=== PATIENT | male | born 1960 | race Two or more races ===

== ENCOUNTER 2021-12-27 11:32 | Emergency (ER) | payer MEDICAID, SELFPAY ==
--- NOTE | ~2021-12-27 | XR_ITS ---
EXAMINATION: XR CHEST CLINICAL INFORMATION: Assess port. COMPARISON: 06/06/2013 chest radiograph. TECHNIQUE: Frontal view of the chest was obtained. FINDINGS: Support devices: Right-sided central venous port with tip terminating over the right atrium. Low lung volumes limit evaluation. Linear markings are seen in the left mid and lower lung k[place]. No pneumothorax. The heart and mediastinal structures are unremarkable. XR/XR chest 1V IMPRESSION: 1. Right central venous port with tip terminating over the region of the right atrium. 2. Mild linear atelectasis versus scarring in the left lower lung.
--- NOTE | ~2021-12-27 | US_ITS ---
EXAMINATION: US VENOUS ULTRASOUND WITH DOPPLER LOWER EXTREMITY, BILATERAL CLINICAL INFORMATION: Swelling COMPARISON: None TECHNIQUE: Ultrasound of the deep veins is performed from the hip to the calf with compression sonography and color and pulse Doppler assessment. Spectral analysis with color-flow imaging is performed. FINDINGS: RIGHT: There is normal venous compression and respiratory variation and augmented flow. The visualized common femoral vein, superficial femoral vein, profunda femoral vein, popliteal vein, and the trifurcation region shows no evidence of deep venous thrombosis. There is no significant popliteal fossa cyst. LEFT: There is normal venous compression and respiratory variation and augmented flow. The visualized common femoral vein, superficial femoral vein, profunda femoral vein, popliteal vein, and the trifurcation region shows no evidence of deep venous thrombosis. There is no significant popliteal fossa cyst. If the patient's symptoms persist, followup ultrasound in 5 days 7 days might be of value to exclude proximal propagation from a non-visualized calf vein. US/US venous duplex LE BI IMPRESSION: No DVT demonstrated in the bilateral lower extremity.
--- NOTE | 2021-12-27 11:35 | ECG_ITS ---
Test Reason : WEAKNESS/ VOMITTING Blood Pressure : / mmHG Vent. Rate : 068 BPM Atrial Rate : 068 BPM P-R Int : 194 ms QRS Dur : 104 ms QT Int : 400 ms P-R-T Axes : 015 -19 008 degrees QTc Int : 425 ms Normal sinus rhythm Minimal voltage criteria for LVH, may be normal variant ( R in aVL ) Cannot rule out Anterior infarct , age undetermined Abnormal ECG When compared with ECG of 06-JUN-2013 18:43, No significant change was found Referred By: Lizeth Singleton Electronically Signed By:GERARDO NICK MD
--- NOTE | 2021-12-27 11:36 | ED_ITS ---
HPI - General Adult General Chief complaint: General Medical Stated complaint: GENERAL WEAKNESS X 3 DAYS Time Seen by Provider: 12/27/21 11:34 Source: patient and EMS Mode of arrival: EMS Limitations: other (korean speaking son used for translation was offered other translation ) History of Present Illness HPI narrative: this is a 61-year-old male past medical history significant for multiple myeloma, diabetes, hypertension, high cholesterol currently on chemotherapy every Wednesday through [facility], according to patient and son patient has been vomiting for the past 3 days, and has not been able to keep anything down. They tell me that he was recently started on a new oral medication that they think this for chemotherapy however this medication at has not been settling well and patient's stomach. Patient reports that he has lost a lot of weight however is unable to quantify how much. He is also unable to quantify how many times he has vomited. He tells me he feels extremely weak, an d he is having some burning sensation in his epigastric region. Patient denies fevers, chills, chest pain, shortness of breath, urinary or bowel changes. Last chemo 12/19/2021 Onset (ago): day(s) (3) Related Data Home Medications Medication Instructions Recorded Confirmed aspirin 81 mg tablet,delayed 81 mg PO DAILY 12/27/21 12/27/21 release atorvastatin 80 mg tablet 80 mg PO DAILY 12/27/21 12/27/21 atovaquone 750 mg/5 mL oral 1,500 mg PO DAILY 12/27/21 12/27/21 suspension baclofen 5 mg tablet 10 mg PO TID 12/27/21 12/27/21 brimonidine 0.2 %-timolol 0.5 % 1 drp ophthalmic (eye) BID 12/27/21 12/27/21 eye drops (Combigan) buprenorphine 20 mcg/hour weekly 1 patch transdermal QWEEK 12/27/21 12/27/21 transdermal patch (Butrans) cholecalciferol (vitamin D3) 25 25 mcg PO DAILY 12/27/21 12/27/21 mcg (1,000 unit) tablet cyanocobalamin (vitamin B-12) 1,000 mcg PO DAILY 12/27/21 12/27/21 1,000 mcg tablet hydroxyzine HCl 25 mg tablet 25 mg PO TID PRN Itching 12/27/21 12/27/21 insulin aspart U-100 100 unit/mL 15 unit subcut TID 12/27/21 12/27/21 subcutaneous solution (Novolog U-100 Insulin aspart) latanoprost 0.005 % eye drops 1 drp ophthalmic (eye) BEDTIME 12/27/21 12/27/21 loratadine 10 mg tablet 10 mg PO DAILY 12/27/21 12/27/21 methylphenidate HCl 5 mg tablet 5 mg PO BID 12/27/21 12/27/21 netarsudil 0.02 % eye drops 1 drp ophthalmic (eye) BEDTIME 12/27/21 12/27/21 (Rhopressa) ondansetron 8 mg disintegrating 8 mg PO Q8H PRN Nausea 12/27/21 12/27/21 tablet polyethylene glycol 3350 17 gram 17 g PO DAILY PRN Constipation 12/27/21 12/27/21 oral powder packet (Miralax) valacyclovir 500 mg tablet 500 mg PO BID 12/27/21 12/27/21 Previous Rx's Medication Instructions Recorded ondansetron 4 mg disintegrating 4 mg PO ONCE PRN nausea and 12/27/21 tablet vomiting #10 tabs Allergies Allergy/AdvReac Type Severity Reaction Status Date / Time No Known Allergies Allergy Unverified 03/21/20 18:08 [No Known Allergies*] Review of Systems Review of Systems: Constitutional : No Weight loss, No Fever, No Chills, No Fatigue, No Malaise ENT/Mouth : No sore throat, No Rhinorrhea Eyes: No Eye Pain, No Swelling, No Redness Cardiovascular : No Chest Pain, No SOB, No Dyspnea on Exertion, No Orthopnea, No Edema, No Palpitations Respiratory : No Cough, No Sputum, No Wheezing Gastrointestinal : No Nausea, No Vomiting, No Diarrhea, No Constipation, No abdominal Pain, No Hematochezia, No Melena Genitourinary : No Dysuria, No Urinary Frequency, No Hematuria, Musculoskeletal : No joint pain, No Myalgias, No Joint Swelling Skin : No Skin Lesions, No rash Neuro : No Weakness, No Numbness, No Dizziness, No Headache Psych : No Anxiety/Panic, No Depression All other systems reviewed and are negative Yes all other systems are reviewed and are negative PMFSH Past Medical History Attestation statement: The following information was validated with the patient. Source: old records reviewed and nursing notes reviewed Social History Social History Advance Directives: No Advance Directives Information Provided: No Physical Exam ED Vital Signs: Vital Signs - 24 hr 12/27/21 11:52 12/27/21 12:27 12/27/21 13:54 Temperature 99.5 F 98.1 F Pulse Rate 68 64 64 Respiratory Rate 16 14 16 Blood Pressure 129/60 133/67 155/79 H Pulse Oximetry 99 97 99 Oxygen Delivery Method Room Air Room Air Room Air 12/27/21 16:00 Temperature 98.1 F Pulse Rate 64 Respiratory Rate 16 Blood Pressure 164/71 H Pulse Oximetry 99 Oxygen Delivery Method Room Air BMI result Body Mass Index 30.9 Vital signs stable Appearance: Alert.? Oriented X3.? No acute distress.? Head: Normocephalic, atraumatic, no step-offs or deformities Eyes: Pupils equal, round and reactive to light.? ENT: Pharynx normal.? Neck: Normal inspection.? Neck supple.? CVS: Normal heart rate and rhythm.? Pulses normal.? Respiratory: No respiratory distress.? Breath sounds normal.? Abdomen: Soft and nontender.? Skin: Skin warm and dry.? Normal skin color.? Normal skin turgor.? Extremities: 1+ lower extremity edema b/l R>L.? No calf ttp. 5/5 strength to bilateral upper and lower extremities Back: No midline tenderness, no C-spine tenderness, full range of motion, no CVA tenderness bilaterally Neuro: Oriented X 3.? No motor deficit.? No sensory deficit. CN 2-12 intact Course Reevaluation(s) Reevaluation #1: Patient is noted to have a pancytopenia likely secondary to chemotherapy agents. patient is noted to have low platelets however no evidence of bleeding at this time. Patient's BUN slightly elevated likely secondary to dehydration. UA clean for infection. COVID negative. I had Dr. Eckert speak to this patient as he speaks Khmer, patient is also reporting lower extremity edema, on exam right leg slightly more swollen the left, 2+ posterio tib and dorsalis pedis pulses equal bilateral. Will order a bilateral venous duplex to rule out DVT. This case was discussed with Dr.Elmogy. Patient's nausea and vomiting improved. He is getting hydrated and he feels slightly better Time: 18:24 Reevaluation #2: Venous duplex lower extremities with no DVT. Right central venous port with t ip terminating over the region of the right atrium, no other acute findings. Patient tollerating PO. Feeling better no N/V Patient without nausea and vomiting, was given a GI cocktail with success. Likely nausea and vomiting secondary to chemotherapy. At this time patient will be discharged home with prompt PCP and Oncology follow-up. Time: 21:01 Medical Decision Making [facility] Narrative Medical decision making narrative: [id number] yo m hx Of multiple myeloma currently on chemotherapy an oral medication presenting to the emergency department with weakness, nausea, vomiting, epigastric burning, poor PO intake x3 days. Recently started on a new oral regimen. Patient unsure of what medication he is on. audio visual secretary is currently trying to request [facility] oncology records in last hospitalization records. Physical examination benign. Plan at this time is to obtain an EKG, basic labs, urine, will rule out electrolyte abnormalities, dehydration. Will also start fluids and give Zofran Medical Records Medical records reviewed: Yes I reviewed the patient's medical records. Lab Data Lab results reviewed: Yes I reviewed the patient's lab results. Result diagrams: 12/27/21 13:01 12/27/21 13:01 Labs: Lab Results 12/27/21 12/27/21 12/27/21 Range/Units 12:25 13:01 13:01 WBC 2.4 L (4.8-10.8) X10*3/uL RBC 2.97 L (4.60-5.80) X10*6/uL Hgb 8.9 L (14.0-18.0) g/dl Hct 25.7 L (42.0-52.0) % MCV 86.5 (80.0-98.0) fL MCH 30.0 (27.0-33.0) pg MCHC 34.6 (31.0-36.0) g/dl RDW 13.4 (11.0-16.0) % Plt Count 23 L (160-400) X10*3/uL MPV 9.6 (9.4-12.4) fL Immature Gran % (Auto) 0.0 (0.0-0.4) % Neut % (Auto) 71.9 (45-73) % Lymph % (Auto) 13.0 L (20-40) % [place] % (Auto) 15.1 H (2-11) % Eos % (Auto) 0.0 (0-4) % Baso % (Auto) 0.0 (0-2) % Lymph # (Auto) 0.3 L (1.2-4.9) X10*3/uL [place] # (Auto) 0.4 (0.1-1.2) X10*3/uL Eos # (Auto) 0.0 (0.0-0.4) X10*3/uL Baso # (Auto) 0.0 (0.0-0.2) X10*3/uL Abs Immat Gran (auto) 0.00 (0.00-0.03) X10*3/uL Absolute Neuts (auto) 1.7 L (2.0-8.3) x10*3/uL Absolute Nucleated RBC 0.000 (0.0-0.012) X10*3/uL Nucleated RBC % (auto) 0.0 (0.0-0.2) /100WBC Smear Tech's Comments VERIFIED Sodium 134 L (135-145) mmol/L Potassium 3.8 (3.3-5.1) mmol/L Chloride 105 (96-108) mmol/L Carbon Dioxide 21 L (22-29) mmol/L Anion Gap 12 (12-20) BUN 21 H (9-16) mg/dL Creatinine 1.39 (0.5-1.4) mg/dL Estim Creat Clear Calc 78.4 Estimated GFR 52 Random Glucose 170 H (60-115) mg/dL Calcium 8.8 (8.4-10.2) mg/dL Magnesium 1.7 (1.6-2.6) mg/dL Total Bilirubin 1.1 H (0.0-1.0) mg/dL AST 12 (5-37) U/L ALT 7 (0-40) U/L Alkaline Phosphatase 52 (39-117) U/L B-Natriuretic Peptide (<100) pg/mL Total Protein 6.6 (6.5-8.0) g/dL Albumin 3.7 (3.5-5.0) g/dL Urine Color Urine Appearance Urine pH (5.0-8.0) Ur Specific [place] (1.005-1.025) Urine Protein (NEG-TRACE) MG/DL Urine Glucose (UA) (NEG) MG/DL Urine Ketones (NEG) MG/DL Urine Blood (NEG) Urine Nitrite (NEG) Ur Leukocyte Esterase (NEG) Urine RBC (0) /HPF Urine WBC (0-4) /HPF Ur Squamous Epith Cells /LPF Urine Bacteria /LPF Hyaline Casts /LPF Urine Mucus /LPF COVID-19 (STEPHANIE) Negative (Negative) COVID-19 Clin Com See Note 12/27/21 12/27/21 Range/Units 15:09 20:46 WBC (4.8-10.8) X10*3/uL RBC (4.60-5.80) X10*6/uL Hgb (14.0-18.0) g/dl Hct (42.0-52.0) % MCV (80.0-98.0) fL MCH (27.0-33.0) pg MCHC (31.0-36.0) g/dl RDW (11.0-16.0) % Plt Count (160-400) X10*3/uL MPV (9.4-12.4) fL Immature Gran % (Auto) (0.0-0.4) % Neut % (Auto) (45-73) % Lymph % (Auto) (20-40) % [place] % (Auto) (2-11) % Eos % (Auto) (0-4) % Baso % (Auto) (0-2) % Lymph # (Auto) (1.2-4.9) X10*3/uL [place] # (Auto) (0.1-1.2) X10*3/uL Eos # (Auto) (0.0-0.4) X10*3/uL Baso # (Auto) (0.0-0.2) X10*3/uL Abs Immat Gran (auto) (0.00-0.03) X10*3/uL Absolute Neuts (auto) (2.0-8.3) x10*3/uL Absolute Nucleated RBC (0.0-0.012) X10*3/uL Nucleated RBC % (auto) (0.0-0.2) /100WBC Smear Tech's Comments Sodium (135-145) mmol/L Potassium (3.3-5.1) mmol/L Chloride (96-108) mmol/L Carbon Dioxide (22-29) mmol/L Anion Gap (12-20) BUN (9-16) mg/dL Creatinine (0.5-1.4) mg/dL Estim Creat Clear Calc Estimated GFR Random Glucose (60-115) mg/dL Calcium (8.4-10.2) mg/dL Magnesium (1.6-2.6) mg/dL Total Bilirubin (0.0-1.0) mg/dL AST (5-37) U/L ALT (0-40) U/L Alkaline Phosphatase (39-117) U/L B-Natriuretic Peptide 255 H (<100) pg/mL Total Protein (6.5-8.0) g/dL Albumin (3.5-5.0) g/dL Urine Color YELLOW Urine Appearance CLEAR Urine pH 6.0 (5.0-8.0) Ur Specific [place] 1.020 (1.005-1.025) Urine Protein 2+ H (NEG-TRACE) MG/DL Urine Glucose (UA) NEG (NEG) MG/DL Urine Ketones NEG (NEG) MG/DL Urine Blood 1+ H (NEG) Urine Nitrite NEG (NEG) Ur Leukocyte Esterase NEG (NEG) Urine RBC 1-4 (0) /HPF Urine WBC 0-2 (0-4) /HPF Ur Squamous Epith Cells TRACE /LPF Urine Bacteria NONE /LPF Hyaline Casts 1-4 /LPF Urine Mucus TRACE /LPF COVID-19 (STEPHANIE) (Negative) COVID-19 Clin Com Critical Care Time Critical Care Time Critical Care Time: No Discharge Plan Discharge Clinical Impression: Weakness, Nausea & vomiting Patient Disposition: Home, Self-Care Instructions: Acute Nausea and Vomiting (ED), Weakness (ED) Additional Instructions: Take your medications as prescribed. If you were prescribed antibiotics today, it is important that you take your medication to their entirety, do not skip any doses, do not finish them early. Follow-up with your primary care provider this week. Return to the emergency department with new or worsening symptoms. Such as fevers, chills, chest pain, shortness of breath, nausea, vomiting, dizziness, headache, vision changes, lethargy In case of emergency call 911 US/US venous duplex LE BI IMPRESSION: No DVT demonstrated in the bilateral lower extremity. Prescriptions: New ondansetron 4 mg tablet,disintegrating 4 mg PO ONCE PRN (Reason: nausea and vomiting) Qty: 10 0RF No Action latanoprost 0.005 % Drops 1 drp OPHTHALMIC (EYE) BEDTIME atorvastatin 80 mg Tablet 80 mg PO DAILY polyethylene glycol 3350 [Miralax] 17 gram Powder In Packet 17 g PO DAILY PRN (Reason: Constipation) methylphenidate HCl 5 mg Tablet 5 mg PO BID cyanocobalamin (vitamin B-12) 1,000 mcg Tablet 1,000 mcg PO DAILY valacyclovir 500 mg Tablet 500 mg PO BID aspirin 81 mg Tablet,Delayed Release (Dr/Ec) 81 mg PO DAILY ondansetron 8 mg Tablet,Disintegrating 8 mg PO Q8H PRN (Reason: Nausea) insulin aspart U-100 [Novolog U-100 Insulin aspart] 100 unit/mL Solution 15 unit SUBCUT TID loratadine 10 mg Tablet 10 mg PO DAILY atovaquone 750 mg/5 mL Suspension 1,500 mg PO DAILY Rx Instructions: must administer with food, preferably a high-fat meal cholecalciferol (vitamin D3) 25 mcg (1,000 unit) Tablet 25 mcg PO DAILY brimonidine-timolol [Combigan] 0.2-0.5 % Drops 1 drp OPHTHALMIC (EYE) BID buprenorphine [Butrans] 20 mcg/hour Patch Weekly 1 patch TRANSDERMAL QWEEK Rhopressa 0.02 % Drops 1 drp OPHTHALMIC (EYE) BEDTIME baclofen 5 mg Tablet 10 mg PO TID hydroxyzine HCl 25 mg Tablet 25 mg PO TID PRN (Reason: Itching) Referrals: Name,MD Lucas [Primary Care Provider] - 2 days
[2021-12-27 11:44] VITALS: BP 127/73; PULSE 72; O2SAT 94; BMI 30.9
[2021-12-27 11:52] VITALS: BP 129/60; PULSE 68; RESP 16; TEMP 37.5; O2SAT 99
[2021-12-27 12:27] VITALS: BP 133/67; PULSE 64; RESP 14; O2SAT 97
[2021-12-27 12:56] LABS: COVID-19 Test Negative (Negative); IDNOW Serial# 16C4AD1C
[2021-12-27] MEDS: 0.9 % Sodium Chloride 1,000 ML 999 ML IV ×3 (13:03→19:39)
[2021-12-27 13:19] LABS: Monocytes Percent Auto 15.1 % (2-11); PLT CLUMP 1; SCAN SMEAR FLAG 1
[2021-12-27 13:21] LABS: Hematocrit 25.7 % (42.0-52.0); Hemoglobin 8.9 g/dl (14.0-18.0); Lymphocytes Absolute Auto 0.3 X10*3/uL (1.2-4.9); Mean Corpuscular HGB Conc 34.6 g/dl (31.0-36.0); Mean Corpuscular Volume 86.5 fL (80.0-98.0); Mean Platelet Volume 9.6 fL (9.4-12.4); Monocytes Absolute Auto 0.4 X10*3/uL (0.1-1.2); Neutrophils Absolute Auto 1.7 x10*3/uL (2.0-8.3); Neutrophils Percent Auto 71.9 % (45-73); Red Blood Count 2.97 X10*6/uL (4.60-5.80); Red Cell Distribution Width 13.4 % (11.0-16.0)
[2021-12-27 13:25] LABS: White Blood Count 2.4 X10*3/uL (4.8-10.8)
--- NOTE | 2021-12-27 13:34 | PHA.MEDREC ---
Pharmacy Consult ? Medication Reconciliation Pharmacy has completed the medication reconciliation. Pt's son Damon at bedside helping translate. Pt unsure of exactly which medications he takes, but stated he takes an antiviral and named a couple vitamins, also noted a liquid that he takes. Damon told me he uses [facility] [address] in [place], called and spoke to Monica who went over most recent medication warehouse order picker. Pt stated the only thing he took today was his nausea medication.
[2021-12-27 13:37] LABS: Platelet Count 23 X10*3/uL (160-400)
[2021-12-27 13:38] LABS: MANUAL DIFF FLAG SCAN; SLIDE REVIEW VERIFIED
[2021-12-27 13:54] VITALS: BP 155/79; PULSE 64; RESP 16; TEMP 36.7; O2SAT 99
[2021-12-27 14:15] LABS: Alanine Aminotransferase 7 U/L (0-40); Albumin Level 3.7 g/dL (3.5-5.0); Alkaline Phosphatase 52 U/L (39-117); Anion Gap 12 (12-20); Aspartate Amino Transferase 12 U/L (5-37); Bilirubin Total 1.1 mg/dL (0.0-1.0); Blood Urea Nitrogen 21 mg/dL (9-16); Calcium 8.8 mg/dL (8.4-10.2); Carbon Dioxide 21 mmol/L (22-29); Chloride 105 mmol/L (96-108); Creatinine Clr Calc Pharmacy 78.4; Estimated Glomerular Filt Rate 52; Glucose Random 170 mg/dL (60-115); Magnesium 1.7 mg/dL (1.6-2.6); Potassium 3.8 mmol/L (3.3-5.1); Sodium 134 mmol/L (135-145); Total Protein 6.6 g/dL (6.5-8.0)
[2021-12-27 15:25] LABS: Appearance Urine CLEAR; Color Urine YELLOW; Glucose Urine UA NEG (NEG); Leukocyte Esterase Urine NEG (NEG); Nitrite Urine NEG (NEG); UACC Culture Trigger NO; Urine Blood 1+ (NEG); Urine Ketones NEG (NEG); Urine Protein 2+ MG/DL (NEG-TRACE)
[2021-12-27 16:00] VITALS: BP 164/71; PULSE 64; RESP 16; TEMP 36.7; O2SAT 99
[2021-12-27 16:13] LABS: Mucus Urine TRACE /LPF; Squamous Epithelial Cell Urine TRACE /LPF; WBC Urine 0-2 /HPF (0-4)
[2021-12-27] MEDS: PHENobarb/Hyoscy/Atropine/Scop 10 ML ELIXIR PO (20:40)
[2021-12-27] MEDS: Magnesium Hydrox/Alum Hydrox 30 ML ORAL.SUSP PO (20:40)
[2021-12-27] MEDS: Ondansetron ODT 4 MG TAB.RAPDIS TRANSLINGU (20:40)
[2021-12-27 21:22] LABS: B Type Natriuretic Peptide 255 pg/mL (<100)
== END 2021-12-27 22:22 | disposition home or self-care (01) ==
PROVIDERS: Physician Assistant; Emergency Provider Emergency Medicine Emergency Medical Services; PCP Internal Medicine Geriatric Medicine
DX: R53.1 Weakness (principal); R11.2 Nausea with vomiting, unspecified; R10.13 Epigastric pain; R60.0 Localized edema; R06.02 Shortness of breath; Z20.822 Contact with and (suspected) exposure to COVID-19; Z79.82 Long term (current) use of aspirin
CPT/HCPCS: 36415; 71045; 80053; 81001; 83735; 83880; 85025; 87635; 93005; 93970; 96360; 96361; 99284; 99285

== ENCOUNTER 2022-01-11 01:39 | Observation (INO) | payer MEDICAID, SELFPAY ==
[2022-01-11] VITALS (12 sets, daily range): BP systolic 82–111; BP diastolic 46–68; PULSE 61–77; RESP 12–20; TEMP 36.4–36.8; O2SAT 94–100; BMI 34.9
--- NOTE | ~2022-01-11 | CT_ITS ---
EXAMINATION: CT ABDOMEN AND PELVIS WITHOUT CONTRAST CLINICAL INFORMATION: Diarrhea. Pain. COMPARISON: 09/28/2012 TECHNIQUE: Multidetector volumetric imaging was performed from the superior aspect of the liver through the pubic symphysis. Sagittal and coronal reformatted images were obtained on the technologist's workstation. This CT examination was performed using dose optimization techniques as appropriate, variously including the following: *Automated exposure control *Adjustment of mA and/or kV according to patient size (this includes techniques or standardized protocols for targeted exams where dose is matched to indication/reason for exam; i.e. extremities or head) *Use of iterative reconstruction technique DLP: 1074 mGy-cm FINDINGS: LUNG BASES: Bibasilar atelectasis. Pleural plaques are noted. Coronary artery calcifications. LIVER, GALLBLADDER, AND BILIARY TREE: The liver is normal in size, shape, and attenuation. No focal hepatic lesion or biliary ductal dilatation is present. The gallbladder is unremarkable with no evidence of radiopaque gallstones, gallbladder wall thickening, or obvious pericholecystic inflammatory changes. PANCREAS: Fatty atrophy of the pancreatic parenchyma with no focal abnormality. SPLEEN: Unremarkable. ADRENAL GLANDS: Unremarkable. KIDNEYS AND URETERS: The kidneys are normal in size, shape, and attenuation. No hydronephrosis, hydroureter, or calculi seen. No perinephric stranding. Bilateral multiple simple cysts. No follow-up imaging recommended. BLADDER: Unremarkable. GASTROINTESTINAL TRACT: Distended stomach without wall thickening. Normal caliber small bowel without obstruction. Fluid-filled appearance of the small bowel. Fluid-filled appearance throughout the colon. No colonic wall thickening. ABDOMINAL WALL: No significant hernia is appreciated. LYMPH NODES: Normal. VASCULAR: Normal caliber aorta with mild atherosclerotic calcifications. PELVIC VISCERA: The prostate and seminal vesicles are unremarkable. OSSEOUS STRUCTURES: No acute or suspicious abnormality. The bones are significantly osteopenic. Fusion hardware at L3-L5. Kyphoplasty of T12. Multilevel vertebral body height loss. Subacute to chronic sternal fracture. CT/CT abdomen pelvis wo con IMPRESSION: Fluid-filled distention of the small and large bowel without abnormal dilatation. This could represent enterocolitis. No significant inflammatory changes. Fleischner guidelines were followed.
--- NOTE | ~2022-01-11 | XR_ITS ---
EXAMINATION: XR CHEST CLINICAL INFORMATION: Weakness COMPARISON: 12/27/2021 TECHNIQUE: Frontal view of the chest was obtained. FINDINGS: CT compatible right chest wall port terminates near the cavoatrial junction. Cardiac leads overlie the chest. The lungs are well expanded. Linear left midlung atelectasis/scarring. No pleural effusion or pneumothorax. No dense consolidation. No effusion. The cardiomediastinal silhouette is unchanged. XR/XR chest 1V IMPRESSION: Linear left midlung atelectasis. No consolidation.
--- NOTE | 2022-01-11 02:02 | ECG_ITS ---
Test Reason : WEAKNESS Blood Pressure : / mmHG Vent. Rate : 070 BPM Atrial Rate : 070 BPM P-R Int : 208 ms QRS Dur : 108 ms QT Int : 394 ms P-R-T Axes : 026 005 035 degrees QTc Int : 425 ms Normal sinus rhythm Normal ECG When compared with ECG of 27-DEC-2021 11:58, No significant change was found Referred By: Mery Mason Electronically Signed By:Gino Mello
--- NOTE | 2022-01-11 02:07 | ED_ITS ---
HPI - Nausea/Vomiting/Diarrhea General Chief complaint: Weakness Stated complaint: DIZZINESS ,LOW BP 70/40 PER EMS Time Seen by Provider: 01/11/22 01:52 Source: patient, EMS and old records reviewed Mode of arrival: EMS Limitations: no limitations History of Present Illness HPI Narrative: 61 yo male from home hx of multiple myeloma, DM, HTN, HLD - on chemo every wednesday through [facility] (has port R chest wall) states chemo was last wednesday he usually has n/v post chemo but for past two days his stomach has been gurgling and he has had significant diarrhea and poor PO intake. BP at home in 70s. Seen at end of December here for similar complaint. Patient also notes he has diffuse body pain as well. MD elicited complaint: nausea, vomiting, diarrhea and abdominal pain Pertinent past history: other (recent chemo for multiple myeloma) Onset (ago): day(s) (2) Description of vomiting: watery Associated nausea: Yes Associated abdominal pain: Yes Location of pain: diffuse Radiation: diffuse Pain consistency: intermittent Severity: moderate Quality: aching and dull Exacerbating factors: eating Relieving factors: none Context: recent surgery/procedure Associated symptoms: loss of appetite, malaise, nausea/vomiting, weakness and fatigue Related Data Home Medications Medication Instructions Recorded Confirmed aspirin 81 mg tablet,delayed 81 mg PO DAILY 12/27/21 12/27/21 release atorvastatin 80 mg tablet 80 mg PO DAILY 12/27/21 12/27/21 atovaquone 750 mg/5 mL oral 1,500 mg PO DAILY 12/27/21 12/27/21 suspension baclofen 5 mg tablet 10 mg PO TID 12/27/21 12/27/21 brimonidine 0.2 %-timolol 0.5 % 1 drp ophthalmic (eye) BID 12/27/21 12/27/21 eye drops (Combigan) buprenorphine 20 mcg/hour weekly 1 patch transdermal QWEEK 12/27/21 12/27/21 transdermal patch (Butrans) cholecalciferol (vitamin D3) 25 25 mcg PO DAILY 12/27/21 12/27/21 mcg (1,000 unit) tablet cyanocobalamin (vitamin B-12) 1,000 mcg PO DAILY 12/27/21 12/27/21 1,000 mcg tablet hydroxyzine HCl 25 mg tablet 25 mg PO TID PRN Itching 12/27/21 12/27/21 insulin aspart U-100 100 unit/mL 15 unit subcut TID 12/27/21 12/27/21 subcutaneous solution (Novolog U-100 Insulin aspart) latanoprost 0.005 % eye drops 1 drp ophthalmic (eye) BEDTIME 12/27/21 12/27/21 loratadine 10 mg tablet 10 mg PO DAILY 12/27/21 12/27/21 methylphenidate HCl 5 mg tablet 5 mg PO BID 12/27/21 12/27/21 netarsudil 0.02 % eye drops 1 drp ophthalmic (eye) BEDTIME 12/27/21 12/27/21 (Rhopressa) ondansetron 8 mg disintegrating 8 mg PO Q8H PRN Nausea 12/27/21 12/27/21 tablet polyethylene glycol 3350 17 gram 17 g PO DAILY PRN Constipation 12/27/21 12/27/21 oral powder packet (Miralax) valacyclovir 500 mg tablet 500 mg PO BID 12/27/21 12/27/21 Previous Rx's Medication Instructions Recorded ondansetron 4 mg disintegrating 4 mg PO ONCE PRN nausea and 12/27/21 tablet vomiting #10 tabs Allergies Allergy/AdvReac Type Severity Reaction Status Date / Time No Known Allergies Allergy Unverified 03/21/20 18:08 [No Known Allergies*] Review of Systems Review of Systems: Constitutional : No Weight loss, No Fever, No Chills ENT/Mouth : No sore throat, No Rhinorrhea Eyes: No Swelling, No Redness Cardiovascular : No Chest Pain, No SOB, NoEdema Respiratory : No Cough, No Sputum, No Wheezing Gastrointestinal : Positive Nausea, Positive Vomiting, positive Diarrhea, positive abdominal Pain, No Hematochezia, No Melena Genitourinary : No Dysuria, No Urinary Frequency, No Hematuria, No Urgency Musculoskeletal : No joint pain, No Myalgias, No Joint Swelling Skin : No Skin Lesions, No rash Neuro : pos Weakness, No Numbness, No Dizziness, No Headache Psych : No Anxiety/Panic, No Depression Heme/Lymph: No Bruising, No Lymphadenopathy Endocrine : No Polyuria, No Polydipsia All other systems reviewed and are negative. Gastrointestinal: Gastrointestinal: Reports nausea PMFSH Past Medical History Attestation statement: The following information was validated with the patient. Medical History Diabetes HTN (hypertension) Hyperlipidemia Multiple myeloma Social History Social History (Updated 01/11/22 @ 02:11 by Mery Mason DO) Patient Tobacco Use Status: Tobacco use Unknown Physical Exam Vital Signs: Vital Signs: Last Vital Signs Temp 97.6 F 01/11/22 01:53 Pulse 71 01/11/22 01:53 Resp 16 01/11/22 01:53 BP 82/50 L 01/11/22 01:53 Pulse Ox 97 01/11/22 01:53 O2 Del Method 01/11/22 01:53 BMI result Body Mass Index 34.9 Appearance: Alert. Oriented X3. Mild acute distress. Eyes: Pupils equal, round and reactive to light. ENT: Pharynx mild dry MM Neck: Normal inspection. Neck supple. CVS: Normal heart rate and rhythm. Pulses normal. Respiratory: No respiratory distress. Breath sounds normal. Abdomen: Soft and mild diffuse ttp no rebound or guarding Skin: Skin warm and dry. pale skin color. Normal skin turgor. Extremities: No lower extremity edema. Neuro: Oriented X 3. No motor deficit. No sensory deficit. Course Course Course Narrative: patient signed out to Dr. Leiva MDM - Nausea/Vomiting/Diarrhea MDM Narrative Medical decision making narrative: 61 yo male from home hx of multiple myeloma, DM, HTN, HLD - on chemo every wednesday through [facility] at this time patient having n/v/d and body pains post chemo on Wednesday. Will obtain basic labs, cultures, CXR, UA and hydrate - he is obese so IBW is 78 kg which = 30cc/kg bolus 2340ml. IV zofran ordered. CT scan for obstruction ordered as well has bilateral hematomas on abdominal wall ? injection sites will obtain records from [facility]. ECG Data Attestation: I personally reviewed and interpreted this ECG as follows: ECG interpretation date: 01/11/22 ECG interpretation time: 02:31 Interpretation: Rate: 70 Rhythm: NSR with 1st degree AVB [place]: left Normal P waves. Normal BRIAN. Normal QRS complex. ST T wave : normal no ROSHNI qTC: normal prior studies: no acute ischemia The study has been interpreted contemporaneously by me. Discharge Plan Discharge Clinical Impression: Acute dehydration Vomiting Qualifiers: Vomiting type: unspecified Nausea presence: with nausea Qualified Code(s): R11.2 - Nausea with vomiting, unspecified Diarrhea Qualifiers: Diarrhea type: unspecified type Qualified Code(s): R19.7 - Diarrhea, unspecified Patient Disposition: Still a Patient Prescriptions: No Action latanoprost 0.005 % Drops 1 drp OPHTHALMIC (EYE) BEDTIME atorvastatin 80 mg Tablet 80 mg PO DAILY polyethylene glycol 3350 [Miralax] 17 gram Powder In Packet 17 g PO DAILY PRN (Reason: Constipation) methylphenidate HCl 5 mg Tablet 5 mg PO BID cyanocobalamin (vitamin B-12) 1,000 mcg Tablet 1,000 mcg PO DAILY valacyclovir 500 mg Tablet 500 mg PO BID aspirin 81 mg Tablet,Delayed Release (Dr/Ec) 81 mg PO DAILY ondansetron 8 mg Tablet,Disintegrating 8 mg PO Q8H PRN (Reason: Nausea) insulin aspart U-100 [Novolog U-100 Insulin aspart] 100 unit/mL Solution 15 unit SUBCUT TID loratadine 10 mg Tablet 10 mg PO DAILY atovaquone 750 mg/5 mL Suspension 1,500 mg PO DAILY Rx Instructions: must administer with food, preferably a high-fat meal cholecalciferol (vitamin D3) 25 mcg (1,000 unit) Tablet 25 mcg PO DAILY brimonidine-timolol [Combigan] 0.2-0.5 % Drops 1 drp OPHTHALMIC (EYE) BID buprenorphine [Butrans] 20 mcg/hour Patch Weekly 1 patch TRANSDERMAL QWEEK Rhopressa 0.02 % Drops 1 drp OPHTHALMIC (EYE) BEDTIME baclofen 5 mg Tablet 10 mg PO TID hydroxyzine HCl 25 mg Tablet 25 mg PO TID PRN (Reason: Itching) ondansetron 4 mg tablet,disintegrating 4 mg PO ONCE PRN (Reason: nausea and vomiting) Qty: 10 0RF
[2022-01-11 02:53] LABS: MANUAL DIFF FLAG NO
[2022-01-11 02:55] LABS: Hematocrit 25.5 % (42.0-52.0); Hemoglobin 8.6 g/dl (14.0-18.0); Imm Gran Abs Auto 0.02 X10*3/uL (0.00-0.03); Imm Gran Pct Auto 0.7 % (0.0-0.4); Lymphocytes Absolute Auto 0.4 X10*3/uL (1.2-4.9); Lymphocytes Percent Auto 13.1 % (20-40); Mean Corpuscular HGB Conc 33.7 g/dl (31.0-36.0); Mean Corpuscular Hemoglobin 30.5 pg (27.0-33.0); Mean Corpuscular Volume 90.4 fL (80.0-98.0); Mean Platelet Volume 11.8 fL (9.4-12.4); Monocytes Absolute Auto 0.3 X10*3/uL (0.1-1.2); Monocytes Percent Auto 11.7 % (2-11); NRBC Pct Auto 1.8 /100WBC (0.0-0.2); Neutrophils Absolute Auto 2.1 x10*3/uL (2.0-8.3); Neutrophils Percent Auto 74.5 % (45-73); Red Blood Count 2.82 X10*6/uL (4.60-5.80); Red Cell Distribution Width 14.9 % (11.0-16.0); White Blood Count 2.8 X10*3/uL (4.8-10.8)
[2022-01-11 02:57] LABS: Platelet Count 38 X10*3/uL (160-400)
[2022-01-11 03:01] LABS: INTERNATIONAL NORM RATIO 1.1 (0.9-1.1); Prothrombin Time 12.2 SEC (10.0-13.1)
[2022-01-11 03:12] LABS: Alanine Aminotransferase 7 U/L (0-40); Alkaline Phosphatase 46 U/L (39-117); Anion Gap 13 (12-20); Aspartate Amino Transferase 17 U/L (5-37); Bilirubin Direct 0.3 mg/dL (0.0-0.5); Bilirubin Total 0.4 mg/dL (0.0-1.0); Blood Urea Nitrogen 40 mg/dL (9-16); Calcium 8.7 mg/dL (8.4-10.2); Carbon Dioxide 17 mmol/L (22-29); Chloride 103 mmol/L (96-108); Creatinine Clr Calc Pharmacy 53.5; Estimated Glomerular Filt Rate 36; Glucose Random 175 mg/dL (60-115); Lipase 8 U/L (8-78); Magnesium 1.8 mg/dL (1.6-2.6); Potassium 3.4 mmol/L (3.3-5.1); Sodium 130 mmol/L (135-145); Total Protein 7.2 g/dL (6.5-8.0)
[2022-01-11 03:18] LABS: Lactic Acid 2.3 mmol/L (0.5-2.0)
[2022-01-11] MEDS: 0.9 % Sodium Chloride 500 ML IV (03:19)
[2022-01-11] MEDS: 0.9 % Sodium Chloride 1,000 ML 999 ML IVCONT ×2 (03:19→05:10)
[2022-01-11] MEDS: ondansetron HCL 4 MG/2 ML VIAL IVPUSH (03:19)
--- NOTE | 2022-01-11 03:20 | PC.NURSE ---
pt vomited 100 cc of red tinged emesis/digested food. notified. VSS. it was determined that pt had eaten a burger PATIENT TRANSPORT OFFICER
[2022-01-11 03:29] LABS: Procalcitonin 0.05 ng/mL
[2022-01-11 03:41] LABS: Influenza A PCR NEGATIVE (Negative); Influenza B PCR NEGATIVE (Negative); Resp Syncy Virus RNA Qual PCR NEGATIVE (Negative); SARS COV2 PCR INHOUSE NEGATIVE (Negative)
[2022-01-11 03:54] LABS: CDiff Gene PCR NEGATIVE (Negative)
--- NOTE | 2022-01-11 04:00 | PC.NURSE ---
pt ambulated to BR stating he had to move his bowels. pt was asssited to w/c and brought to . pt able to transfer self back to w/c from toilet independently using cane.
[2022-01-11 04:49] LABS: Reflex Lactate? Lactic Acid Added
[2022-01-11 04:49] LABS: Appearance Urine HAZY; Color Urine DK YELLOW; Glucose Urine UA NEG (NEG); Leukocyte Esterase Urine NEG (NEG); Nitrite Urine NEG (NEG); PH 5.5 (5.0-8.0); Specific Gravity - Urine >= 1.030 (1.005-1.025); UACC Culture Trigger NO; Urine Blood 1+ (NEG); Urine Ketones NEG (NEG); Urine Protein 2+ MG/DL (NEG-TRACE)
[2022-01-11 05:01] LABS: Amorphous Sediment Urine 1+ /LPF; Bacteria Urine TRACE /LPF; Calcium Oxalate Crystals Urine TRACE /LPF; Hyaline Casts Urine 30-49 /LPF; Mucus Urine 2+ /LPF; RBC Urine 0-2 /HPF (0); Squamous Epithelial Cell Urine 1+ /LPF
[2022-01-11 05:20] LABS: ~Lactic Acid-LAB USE ONLY 1.9 mmol/L (0.5-2.0)
[2022-01-11 05:57] LABS: Alanine Aminotransferase 7 U/L (0-40); Albumin Level 3.6 g/dL (3.5-5.0); Alkaline Phosphatase 42 U/L (39-117); Anion Gap 11 (12-20); Aspartate Amino Transferase 15 U/L (5-37); Bilirubin Total 0.4 mg/dL (0.0-1.0); Blood Urea Nitrogen 40 mg/dL (9-16); Calcium 8.4 mg/dL (8.4-10.2); Carbon Dioxide 17 mmol/L (22-29); Chloride 107 mmol/L (96-108); Creatinine Clr Calc Pharmacy 59.8; Estimated Glomerular Filt Rate 41; Glucose Random 173 mg/dL (60-115); Potassium 3.1 mmol/L (3.3-5.1); Sodium 132 mmol/L (135-145); Total Protein 6.4 g/dL (6.5-8.0)
[2022-01-11 06:23] LABS: Magnesium 1.7 mg/dL (1.6-2.6)
--- NOTE | 2022-01-11 06:30 | PC.NURSE ---
unable to verify whether pt is still taking methadone, pt unsure. [facility] pharmacy is closed until 8 am. medications reconciled with pt and external hx. pt resting in bed, no distress.
[2022-01-11] MEDS: Potassium Chloride Packet 20 MEQ PACKET 60 MEQ PO (07:28)
[2022-01-11] MEDS: 0.9 % Sodium Chloride 1,000 ML 100 ML IVCONT ×2 (07:30→17:54)
[2022-01-11 08:51] LABS: COVID-19 Test Negative (Negative); IDNOW Serial# 16C4AD1C
[2022-01-11 08:52] LABS: Campylobacter Not Detected (Not Detect.)
[2022-01-11 08:53] LABS: Cryptosporidium Not Detected (Not Detect.); E. coli EAEC Not Detected (Not Detect.); E. coli EPEC Not Detected (Not Detect.); E. coli ETEC Not Detected (Not Detect.); E. coli STEC Not Detected (Not Detect.); Plesiomonas shigelloides Not Detected (Not Detect.); Salmonella Not Detected (Not Detect.); Shigella sp./EIEC Not Detected (Not Detect.); Vibrio Not Detected (Not Detect.); Vibrio Cholerae Not Detected (Not Detect.); Yersinia enterocolitica Not Detected (Not Detect.)
[2022-01-11 08:54] LABS: Cyclospora cayetanensis Not Detected (Not Detect.); Entamoeba histolytica Not Detected (Not Detect.)
[2022-01-11 08:59] LABS: Adenovirus F 40/41 Not Detected (Not Detect.); Astrovirus Not Detected (Not Detect.); Giardia lamblia Not Detected (Not Detect.); Norovirus GI/GII Not Detected (Not Detect.); Rotavirus A Not Detected (Not Detect.); Sapovirus Not Detected (Not Detect.)
[2022-01-11 09:05] LABS: E. coli O157 Not Detected (Not Detect.)
--- NOTE | 2022-01-11 11:27 | P.HPHOSP_ITS ---
History of Present Illness Date of Service: 01/11/22 Chief Complaint: Nausea, vomitting and diarrhea 61 yo male from [facility], mostly indonesian speaking with history DM, HTN, HLD of multiple myeloma for which he's on Chemo at [facility]. His last chemo was 2 days ago on 01/09 via a right chest wall port. He usually experiences nausea and vomitting post chemo that might last up to 2 days but this time he has had profuse diarrhea, nausea and vomitting and not able to keep oral intake. His found to have SHAISTA, hypokalemia, acidodis and stomach has been gurgling. He has no fever, no sob, Review of Systems Review of Systems: nausea vomitting diarrha no fever no chest pain no abdominal pain weakness Yes all other systems are reviewed and are negative [facility] Medical History (Updated 01/11/22 @ 11:31 by Saurav Collins MD) Diabetes HTN (hypertension) Hyperlipidemia Multiple myeloma Pertinent family history: reports no family history of malignance Social History (Updated 01/11/22 @ 02:11 by Mery Mason DO) Household Members: Family Housing: Apartment Do you presently have visiting nurse or other home services: No Patient Tobacco Use Status: Tobacco use Unknown Use of substances other than those prescribed or required for medical reasons: No Advance Directives: No Do you have thoughts of harming others: None Do you have a plan to hurt others: No Plan Meds Allergies Allergy/AdvReac Type Severity Reaction Status Date / Time No Known Allergies Allergy Unverified 03/21/20 18:08 [No Known Allergies*] Active Medications: Current Medications Sodium Chloride (Ns) 1,000 mls @ 100 mls/hr IVCONT .Q10H ALENA Last Admin: 01/11/22 07:30 Dose: 100 mls/hr Pharmacy Consult (Consult Rx Perform Med Rec) 1 each MISCELLANE ONCE PRN PRN Reason: Consult order Home Medications Medication Instructions Recorded Confirmed Last Taken Type aspirin 81 mg tablet,delayed 81 mg PO DAILY 12/27/21 01/11/22 Unknown History release atorvastatin 80 mg tablet 80 mg PO DAILY 12/27/21 01/11/22 Unknown History atovaquone 750 mg/5 mL oral 1,500 mg PO DAILY 12/27/21 01/11/22 Unknown History suspension baclofen 5 mg tablet 10 mg PO TID PRN Muscle Spasm 12/27/21 01/11/22 Unknown History brimonidine 0.2 %-timolol 0.5 % 1 drp ophthalmic (eye) BID 12/27/21 01/11/22 Unknown History eye drops (Combigan) buprenorphine 20 mcg/hour weekly 1 patch transdermal QWEEK 12/27/21 01/11/22 Unknown History transdermal patch (Butrans) cholecalciferol (vitamin D3) 25 25 mcg PO DAILY 12/27/21 01/11/22 Unknown History mcg (1,000 unit) tablet cyanocobalamin (vitamin B-12) 1,000 mcg PO DAILY 12/27/21 01/11/22 Unknown History 1,000 mcg tablet hydroxyzine HCl 25 mg tablet 25 mg PO TID PRN Itching 12/27/21 01/11/22 Unknown History insulin aspart U-100 100 unit/mL See Protocol subcut TID 12/27/21 01/11/22 Unknown History subcutaneous solution (Novolog U-100 Insulin aspart) latanoprost 0.005 % eye drops 1 drp ophthalmic (eye) BEDTIME 12/27/21 01/11/22 Unknown History loratadine 10 mg tablet 10 mg PO DAILY 12/27/21 01/11/22 Unknown History netarsudil 0.02 % eye drops 1 drp ophthalmic (eye) BEDTIME 12/27/21 01/11/22 Unknown History (Rhopressa) ondansetron 8 mg disintegrating 8 mg PO Q8H PRN Nausea 12/27/21 01/11/22 12/27/21 History tablet polyethylene glycol 3350 17 gram 17 g PO DAILY PRN Constipation 12/27/21 01/11/22 Unknown History oral powder packet (Miralax) valacyclovir 500 mg tablet 500 mg PO BIDAC 12/27/21 01/11/22 Unknown History calcium carbonate 600 mg-vitamin 1 tab PO DAILY 01/11/22 01/11/22 Unknown History D3 5 mcg (200 unit) tablet diclofenac sodium 1 % topical gel 2 g topical QID 01/11/22 01/11/22 Unknown History diphenhydramine HCl 25 mg capsule 25 mg PO Q4H PRN Itching 01/11/22 01/11/22 Unknown History (Benadryl) folic acid 1 mg tablet 1 mg PO DAILY 01/11/22 01/11/22 Unknown History hydromorphone 8 mg tablet 1 - 2 tab PO Q6H PRN moderate pain 01/11/22 01/11/22 Unknown History insulin glargine 100 unit/mL 25 unit subcut BEDTIME 01/11/22 01/11/22 Unknown History subcutaneous solution Physical Exam Vital Signs and Narrative: Vital Signs: Last Vital Signs Temp 97.7 F 01/11/22 11:07 Pulse 67 01/11/22 11:07 Resp 18 01/11/22 11:07 BP 109/64 01/11/22 11:07 Pulse Ox 94 01/11/22 11:07 O2 Del Method 01/11/22 11:07 BMI result Body Mass Index 34.9 Const: Other: Constitutional: Alert, in no distress, overweight. Mental Status: Oriented to person, place and time. Eyes: Pupils are equal, round and reactive to light. Ear, Nose and Throat: Oropharynx clear, mucous membranes moist. Ears and nose without eformities. Trachea midline. Respiratory: Clear to auscultation. No wheezing, rales or rhonchi. Cardiovascular: S1 S2 regular. No murmurs, rubs or gallops. Gastrointestinal: Abdomen soft, non-tender, non-distended. Normal bowel sounds.? Neurologic: Cranial nerves II-XII grossly intact. No focal neurological deficits. Moves all extremities spontaneously.? Skin: No rashes or lesions.? Musculoskeletal: No cyanosis or clubbing. Psychiatric: Normal mood and affect? Results Labs CBC and Chem 7: 01/12/22 06:45 01/12/22 06:20 Labs: Laboratory Results - last 24 hr 01/11/22 01/11/22 01/11/22 02:36 02:36 02:36 MCV 90.4 MCH 30.5 MCHC 33.7 RDW 14.9 Plt Count 38 L D MPV 11.8 Immature Gran % (Auto) 0.7 H Neut % (Auto) 74.5 H Lymph % (Auto) 13.1 L Howell % (Auto) 11.7 H Eos % (Auto) 0.0 Baso % (Auto) 0.0 Lymph # (Auto) 0.4 L Howell # (Auto) 0.3 Eos # (Auto) 0.0 Baso # (Auto) 0.0 Abs Immat Gran (auto) 0.02 Absolute Neuts (auto) 2.1 Absolute Nucleated RBC 0.050 H Nucleated RBC % (auto) 1.8 H PT INR Anion Gap 13 Estim Creat Clear Calc 53.5 Estimated GFR 36 Random Glucose 175 H Lactic Acid 2.3 H* Lactic Acid F/U @ 2Hr Calcium 8.7 Magnesium 1.8 Total Bilirubin 0.4 Direct Bilirubin 0.3 AST 17 D ALT 7 Alkaline Phosphatase 46 Total Protein 7.2 Albumin 4.0 Lipase 8 Procalcitonin Urine Color Urine Appearance Urine pH Ur Specific [place] Urine Protein Urine Glucose (UA) Urine Ketones Urine Blood Urine Nitrite Ur Leukocyte Esterase Urine RBC Urine WBC Ur Squamous Epith Cells Calcium Oxalate Crystal Amorphous Sediment Urine Bacteria Hyaline Casts Urine Mucus Stl C. cayetanensis PCR Stool Rotavirus A PCR Stl Adenov F 40/ PCR Stool Astrovirus (PCR) Stool Campylobacter PCR Stool Cryptosporidium PCR Stl Sh Tox Pr E STEC PCR Stool E coli O157 PCR Stl Enterotoxigenic E PCR Stool EPEC (PCR) Stool EAEC (PCR) Stl E. histolytica PCR Stool Giardia Lamblia PCR Stl P. shigelloides PCR Stool Salmonella PCR Stool Sapovirus (PCR) Stl Shigella/EIEC PCR St Y.enterocolitica PCR Stool Vibrio (PCR) Stl Vibrio cholerae PCR Stl Norovirus GI/GII PCR C. difficile Tox B Gene COVID-19 (STEPHANIE) COVID-19 Clin Com Influenza Type A (EDISON) Influenza Type A (PCR) Influenza Type B (EDISON) Influenza Type B (PCR) Influenza A & B Note RSV RNA Qual (PCR) SARS-CoV-2 RNA (RT-PCR) 01/11/22 01/11/22 01/11/22 02:36 02:36 02:37 MCV MCH MCHC RDW Plt Count MPV Immature Gran % (Auto) Neut % (Auto) Lymph % (Auto) Howell % (Auto) Eos % (Auto) Baso % (Auto) Lymph # (Auto) Howell # (Auto) Eos # (Auto) Baso # (Auto) Abs Immat Gran (auto) Absolute Neuts (auto) Absolute Nucleated RBC Nucleated RBC % (auto) PT 12.2 INR 1.1 Anion Gap Estim Creat Clear Calc Estimated GFR Random Glucose Lactic Acid Lactic Acid F/U @ 2Hr Calcium Magnesium Total Bilirubin Direct Bilirubin AST ALT Alkaline Phosphatase Total Protein Albumin Lipase Procalcitonin 0.05 Urine Color Urine Appearance Urine pH Ur Specific [place] Urine Protein Urine Glucose (UA) Urine Ketones Urine Blood Urine Nitrite Ur Leukocyte Esterase Urine RBC Urine WBC Ur Squamous Epith Cells Calcium Oxalate Crystal Amorphous Sediment Urine Bacteria Hyaline Casts Urine Mucus Stl C. cayetanensis PCR Stool Rotavirus A PCR Stl Adenov F PCR Stool Astrovirus (PCR) Stool Campylobacter PCR Stool Cryptosporidium PCR Stl Sh Tox Pr E STEC PCR Stool E coli O157 PCR Stl Enterotoxigenic E PCR Stool EPEC (PCR) Stool EAEC (PCR) Stl E. histolytica PCR Stool Giardia Lamblia PCR Stl P. shigelloides PCR Stool Salmonella PCR Stool Sapovirus (PCR) Stl Shigella/EIEC PCR St Y.enterocolitica PCR Stool Vibrio (PCR) Stl Vibrio cholerae PCR Stl Norovirus GI/GII PCR C. difficile Tox B Gene COVID-19 (STEPHANIE) Cancelled COVID-19 Clin Com Cancelled Influenza Type A (EDISON) Influenza Type A (PCR) Influenza Type B (EDISON) Influenza Type B (PCR) Influenza A & B Note RSV RNA Qual (PCR) SARS-CoV-2 RNA (RT-PCR) 01/11/22 01/11/22 01/11/22 02:37 02:37 02:37 MCV MCH MCHC RDW Plt Count MPV Immature Gran % (Auto) Neut % (Auto) Lymph % (Auto) Howell % (Auto) Eos % (Auto) Baso % (Auto) Lymph # (Auto) Howell # (Auto) Eos # (Auto) Baso # (Auto) Abs Immat Gran (auto) Absolute Neuts (auto) Absolute Nucleated RBC Nucleated RBC % (auto) PT INR Anion Gap Estim Creat Clear Calc Estimated GFR Random Glucose Lactic Acid Lactic Acid F/U @ 2Hr Calcium Magnesium Total Bilirubin Direct Bilirubin AST ALT Alkaline Phosphatase Total Protein Albumin Lipase Procalcitonin Urine Color Urine Appearance Urine pH Ur Specific [place] Urine Protein Urine Glucose (UA) Urine Ketones Urine Blood Urine Nitrite Ur Leukocyte Esterase Urine RBC Urine WBC Ur Squamous Epith Cells Calcium Oxalate Crystal Amorphous Sediment Urine Bacteria Hyaline Casts Urine Mucus Stl C. cayetanensis PCR Stool Rotavirus A PCR Stl Adenov F PCR Stool Astrovirus (PCR) Stool Campylobacter PCR Stool Cryptosporidium PCR Stl Sh Tox Pr E STEC PCR Stool E coli O157 PCR Stl Enterotoxigenic E PCR Stool EPEC (PCR) Stool EAEC (PCR) Stl E. histolytica PCR Stool Giardia Lamblia PCR Stl P. shigelloides PCR Stool Salmonella PCR Stool Sapovirus (PCR) Stl Shigella/EIEC PCR St Y.enterocolitica PCR Stool Vibrio (PCR) Stl Vibrio cholerae PCR Stl Norovirus GI/GII PCR C. difficile Tox B Gene NEGATIVE COVID-19 (STEPHANIE) COVID-19 Clin Com Influenza Type A (EDISON) Cancelled Influenza Type A (PCR) NEGATIVE Influenza Type B (EDISON) Cancelled Influenza Type B (PCR) NEGATIVE Influenza A & B Note Cancelled RSV RNA Qual (PCR) NEGATIVE SARS-CoV-2 RNA (RT-PCR) NEGATIVE 01/11/22 01/11/22 01/11/22 02:41 04:44 05:05 MCV MCH MCHC RDW Plt Count MPV Immature Gran % (Auto) Neut % (Auto) Lymph % (Auto) Howell % (Auto) Eos % (Auto) Baso % (Auto) Lymph # (Auto) Howell # (Auto) Eos # (Auto) Baso # (Auto) Abs Immat Gran (auto) Absolute Neuts (auto) Absolute Nucleated RBC Nucleated RBC % (auto) PT INR Anion Gap Estim Creat Clear Calc Estimated GFR Random Glucose Lactic Acid Lactic Acid F/U @ 2Hr 1.9 Calcium Magnesium Total Bilirubin Direct Bilirubin AST ALT Alkaline Phosphatase Total Protein Albumin Lipase Procalcitonin Urine Color DK YELLOW Urine Appearance HAZY Urine pH 5.5 Ur Specific [place] >= 1.030 H Urine Protein 2+ H Urine Glucose (UA) NEG Urine Ketones NEG Urine Blood 1+ H Urine Nitrite NEG Ur Leukocyte Esterase NEG Urine RBC 0-2 Urine WBC 1-4 Ur Squamous Epith Cells 1+ Calcium Oxalate Crystal TRACE Amorphous Sediment 1+ Urine Bacteria TRACE Hyaline Casts 30-49 Urine Mucus 2+ Stl C. cayetanensis PCR Not Detected Stool Rotavirus A PCR Not Detected Stl Adenov F 40/41 PCR Not Detected Stool Astrovirus (PCR) Not Detected Stool Campylobacter PCR Not Detected Stool Cryptosporidium PCR Not Detected Stl Sh Tox Pr E STEC PCR Not Detected Stool E coli O157 PCR Not Detected Stl Enterotoxigenic E PCR Not Detected Stool EPEC (PCR) Not Detected Stool EAEC (PCR) Not Detected Stl E. histolytica PCR Not Detected Stool Giardia Lamblia PCR Not Detected Stl P. shigelloides PCR Not Detected Stool Salmonella PCR Not Detected Stool Sapovirus (PCR) Not Detected Stl Shigella/EIEC PCR Not Detected St Y.enterocolitica PCR Not Detected Stool Vibrio (PCR) Not Detected Stl Vibrio cholerae PCR Not Detected Stl Norovirus GI/GII PCR Not Detected C. difficile Tox B Gene COVID-19 (STEPHANIE) COVID-19 Clin Com Influenza Type A (EDISON) Influenza Type A (PCR) Influenza Type B (EDISON) Influenza Type B (PCR) Influenza A & B Note RSV RNA Qual (PCR) SARS-CoV-2 RNA (RT-PCR) 01/11/22 01/11/22 05:23 08:24 MCV MCH MCHC RDW Plt Count MPV Immature Gran % (Auto) Neut % (Auto) Lymph % (Auto) Howell % (Auto) Eos % (Auto) Baso % (Auto) Lymph # (Auto) Howell # (Auto) Eos # (Auto) Baso # (Auto) Abs Immat Gran (auto) Absolute Neuts (auto) Absolute Nucleated RBC Nucleated RBC % (auto) PT INR Anion Gap 11 L Estim Creat Clear Calc 59.8 Estimated GFR 41 Random Glucose 173 H Lactic Acid Lactic Acid F/U @ 2Hr Calcium 8.4 Magnesium 1.7 Total Bilirubin 0.4 Direct Bilirubin AST 15 ALT 7 Alkaline Phosphatase 42 Total Protein 6.4 L Albumin 3.6 Lipase Procalcitonin Urine Color Urine Appearance Urine pH Ur Specific [place] Urine Protein Urine Glucose (UA) Urine Ketones Urine Blood Urine Nitrite Ur Leukocyte Esterase Urine RBC Urine WBC Ur Squamous Epith Cells Calcium Oxalate Crystal Amorphous Sediment Urine Bacteria Hyaline Casts Urine Mucus Stl C. cayetanensis PCR Stool Rotavirus A PCR Stl Adenov F 40/41 PCR Stool Astrovirus (PCR) Stool Campylobacter PCR Stool Cryptosporidium PCR Stl Sh Tox Pr E STEC PCR Stool E coli O157 PCR Stl Enterotoxigenic E PCR Stool EPEC (PCR) Stool EAEC (PCR) Stl E. histolytica PCR Stool Giardia Lamblia PCR Stl P. shigelloides PCR Stool Salmonella PCR Stool Sapovirus (PCR) Stl Shigella/EIEC PCR St Y.enterocolitica PCR Stool Vibrio (PCR) Stl Vibrio cholerae PCR Stl Norovirus GI/GII PCR C. difficile Tox B Gene COVID-19 (STEPHANIE) Negative COVID-19 Clin Com See Note Influenza Type A (EDISON) Influenza Type A (PCR) Influenza Type B (EDISON) Influenza Type B (PCR) Influenza A & B Note RSV RNA Qual (PCR) SARS-CoV-2 RNA (RT-PCR) Imaging Radiologist's Impressions: Impressions Abdomen/Pelvis CT 01/11/22 03:05 IMPRESSION: Fluid-filled distention of the small and large bowel without abnormal dilatation. This could represent enterocolitis. No significant inflammatory changes. Fleischner guidelines were followed. Chest X-Ray 01/11/22 03:10 IMPRESSION: Linear left midlung atelectasis. No consolidation. Assessment and Plan (1) Acute dehydration: Status: Acute (2) Vomiting: Qualifiers: Nausea presence: with nausea Vomiting type: unspecified Qualified Code(s): R11.2 - Nausea with vomiting, unspecified Status: Acute (3) Diarrhea: Qualifiers: Diarrhea type: unspecified type Qualified Code(s): R19.7 - Diarrhea, unspecified Status: Acute (4) SHAISTA (acute kidney injury): Status: Acute Plan 61/ma le with MM on chemo with post chemo symptoms of nasusea, vomitting and diarrhea #Nausea and vomitting--likely related to chemo, Cdif negative -stool studies -PRN imodium and IVF #HypOkalemia--d/t GI loss -K replacement via IVF -check mag #Metabolic acidosis--from the diarrhea and should correct with hydration #SHAISTA--likely d/t pre renal and dehydration -IVF and follow BMP #Dehydration--IVF #HTN Bp marginal, hold BP meds #Diabetes--SII, diabetic diet..Hold Lantus #Pancytopenia (WBC 2.8, Hgb 8.6, Plat 38) #Lactic acidosis DVT--hold heparin, lovenox or ther givn low Platlets and anemia. Compression device Observation overnight Quality Stroke Does the patient have a stroke diagnosis?: No VTE Prior VTE?: No VTE Risk Level:: Medical - moderate - high VTE Device Contraindication: Treatment Not Tolerated VTE Drug Contraindication: Treatment Not Indicated
--- NOTE | 2022-01-11 11:33 | PHA.MEDREC ---
Pharmacy Consult ? Medication Reconciliation Pharmacy has completed the medication reconciliation. Utilized pt list and claim history for med rec. I called the pharmacies pt uses and cannot figure out where he is getting insulin from. Pt states he takes lantus 25 units at night, not history. I called son and left message. Will let provider know.
[2022-01-11] MEDS: KCl 20 mEq in 5 % Dex/Lact Rin 20 MEQ/1,000 ML IV.SOLN 100 MEQ IVCONT (13:11)
--- NOTE | 2022-01-11 16:36 | PC.NURSE ---
Valtrex not in pyxis, pharmacy notified.
--- NOTE | 2022-01-11 16:52 | PC.NURSE ---
MD made aware of BP
[2022-01-11] MEDS: valACYclovir HCL 500 MG TABLET PO (17:57)
--- NOTE | 2022-01-11 17:57 | PC.NURSE ---
medication Valcyclovir brought to bedside by pharmacy at this time
[2022-01-11 18:15] LABS: Glucose, Whole Blood 104 mg/dL (60-115)
[2022-01-11 21:36] LABS: Glucose, Whole Blood 85 mg/dL (60-115)
--- NOTE | 2022-01-11 21:46 | PC.NURSE ---
Patient given snack at bedside due to sugar
--- NOTE | 2022-01-11 21:47 | PC.NURSE ---
Juice at bedside due to POC of 84
--- NOTE | 2022-01-11 23:14 | PC.NURSE ---
Went to give patient eye drops and he said he does not want them tonight and would take them tomorrow,
[2022-01-12] VITALS: BP 115/58; PULSE 80; RESP 16; TEMP 37.1; O2SAT 99
[2022-01-12] MEDS: ondansetron HCL 4 MG/2 ML VIAL IVPUSH ×2 (01:46→18:01)
[2022-01-12 02:00] VITALS: BP 133/60; PULSE 83; RESP 16; TEMP 37.3; O2SAT 99
[2022-01-12] MEDS: 0.9 % Sodium Chloride 1,000 ML 100 ML IVCONT ×2 (05:16→17:17)
[2022-01-12 06:55] LABS: Anion Gap 11 (12-20); Blood Urea Nitrogen 25 mg/dL (9-16); Calcium 8.1 mg/dL (8.4-10.2); Carbon Dioxide 17 mmol/L (22-29); Chloride 112 mmol/L (96-108); Creatinine Clr Calc Pharmacy 76.6; Estimated Glomerular Filt Rate 55; Glucose Random 125 mg/dL (60-115); Potassium 3.5 mmol/L (3.3-5.1); Sodium 136 mmol/L (135-145)
[2022-01-12 07:04] LABS: Hematocrit 23.8 % (42.0-52.0); Lymphocytes Absolute Auto 0.3 X10*3/uL (1.2-4.9); Lymphocytes Percent Auto 10.5 % (20-40); MANUAL DIFF FLAG SCAN; Mean Corpuscular HGB Conc 33.6 g/dl (31.0-36.0); Mean Corpuscular Hemoglobin 30.3 pg (27.0-33.0); Mean Corpuscular Volume 90.2 fL (80.0-98.0); Mean Platelet Volume 11.3 fL (9.4-12.4); Monocytes Absolute Auto 0.2 X10*3/uL (0.1-1.2); Monocytes Percent Auto 8.9 % (2-11); Neutrophils Percent Auto 80.6 % (45-73); Red Blood Count 2.64 X10*6/uL (4.60-5.80); SCAN SMEAR FLAG 1
[2022-01-12 07:08] LABS: Platelet Count 27 X10*3/uL (160-400); White Blood Count 2.5 X10*3/uL (4.8-10.8)
[2022-01-12 07:51] LABS: SLIDE REVIEW VERIFIED
[2022-01-12] MEDS: Calcium + Vitamin D 250 MG TABLET 500 MG PO (08:43)
[2022-01-12] MEDS: Aspirin Enteric Coated 81 MG TABLET.DR PO (08:44)
[2022-01-12] MEDS: Loratadine 10 MG TABLET PO (08:44)
[2022-01-12] MEDS: Cholecalciferol (Vitamin D3) 25 MCG TABLET PO (08:44)
[2022-01-12] MEDS: Folic Acid 1 MG TABLET PO (08:44)
[2022-01-12] MEDS: Cyanocobalamin (Vitamin B-12) 1,000 MCG TABLET 1000 MCG PO (08:45)
[2022-01-12] MEDS: timoloL maleate 0.5 % Oph Sol 5 ML DRBTL 1 DROP EYE-BOTH (08:51)
[2022-01-12] MEDS: Brimonidine Tartrate 0.2% Oph 5 ML BOTTLE 1 DROP EYE-BOTH (08:51)
--- NOTE | 2022-01-12 08:57 | PC.NURSE ---
Tried to call pharmacy for missing medications.
[2022-01-12 11:55] LABS: Glucose, Whole Blood 139 mg/dL (60-115)
--- NOTE | 2022-01-12 11:56 | P.PNIM_ITS ---
Subjective Subjective Date of Service: 01/12/22 Interval History: f/u n/v/d interval hisotry: symptoms are better Review of Systems no diarrhea, no n/v Physical Exam Vital Signs: Vital Signs: Last Vital Signs Temp 99.1 F 01/12/22 02:00 Pulse 83 01/12/22 02:00 Resp 16 01/12/22 02:00 BP 133/60 01/12/22 02:00 Pulse Ox 99 01/12/22 02:00 O2 Del Method 01/12/22 02:00 BMI result Body Mass Index 34.9 Const: Other: General: AO X 3, no acute distress Resp: CTA bilateral CVS: S1,S2,RRR GI: +BS, NT, no distention Skin: No rash Neuro: motor grossly intact Psych: appropriate affect Objective Data Active Medications Acetaminophen (Acetaminophen 325 Mg Tablet) 650 mg PO Q6H PRN PRN Reason: Pain, Mild (Pain Scale 1-3) Aspirin (Aspirin Enteric Coated 81 Mg Tablet.) 81 mg PO DAILY [facility] Last Admin: 01/12/22 08:44 Dose: 81 mg Documented By: AURELIANO Atorvastatin Calcium (Atorvastatin Calcium 80 Mg Tablet) 80 mg PO BEDTIME [facility] Atovaquone (Atovaquone 750 Mg/5 Ml Oral.Susp) 1,500 mg PO DAILY [facility] Last Admin: 01/12/22 10:35 Dose: Not Given Documented By: MELBA Non-Admin Reason: Patient Refused Baclofen (Baclofen 10 Mg Tablet) 10 mg PO TID PRN PRN Reason: Muscle Spasm Brimonidine Tartrate (Brimonidine Tartrate 0.2% Oph 5 Ml Bottle) 1 drop EYE- BOTH BID [facility] Last Admin: 01/12/22 08:51 Dose: 1 drop Documented By: AURELIANO Calcium Carbonate/Cholecalciferol (Calcium + Vitamin D 250 Mg Tablet) 500 mg PO DAILY [facility] Last Admin: 01/12/22 08:43 Dose: 500 mg Documented By: AURELIANO Cyanocobalamin (Cyanocobalamin (Vitamin B-12) 1,000 Mcg Tablet) 1,000 mcg PO DAILY [facility] Last Admin: 01/12/22 08:45 Dose: 1,000 mcg Documented By: AURELIANO Diphenhydramine HCl (Diphenhydramine Hcl 25 Mg Tablet) 25 mg PO Q4H PRN PRN Reason: Itching Folic Acid (Folic Acid 1 Mg Tablet) 1 mg PO DAILY [facility] Last Admin: 01/12/22 08:44 Dose: 1 mg Documented By: AURELIANO Hydroxyzine HCl (Hydroxyzine Hcl 25 Mg Tablet) 25 mg PO TID PRN PRN Reason: Itching Sodium Chloride (Ns) 1,000 mls @ 100 mls/hr IVCONT .Q10H [facility] Last Admin: 01/12/22 05:16 Dose: 100 mls/hr Documented By: VALENTE Sodium Chloride (Ns) 1,000 mls @ 100 mls/hr IVCONT .Q10H [facility] Last Admin: 01/12/22 08:54 Dose: Not Given Documented By: AURELIANO Non-Admin Reason: IV Running Insulin Human Lispro (Insulin Lispro 100 Unit/Ml 3 Ml Vial) 0 unit SUBCUT QIDACHS [facility]; Protocol Last Admin: 01/12/22 08:51 Dose: Not Given Documented By: AURELIANO Non-Admin Reason: No Insulin Coverage Latanoprost (Latanoprost 0.005 % Ophth Lori 2.5 Ml Drops) 1 drop EYE-BOTH BEDTIME [facility] Last Admin: 01/11/22 23:14 Dose: Not Given Documented By: AUDREY Non-Admin Reason: Patient Refused Loratadine (Loratadine 10 Mg Tablet) 10 mg PO DAILY [facility] Last Admin: 01/12/22 08:44 Dose: 10 mg Documented By: AURELIANO Melatonin (Melatonin 3 Mg Tablet) 6 mg PO BEDTIME PRN PRN Reason: Insomnia Non-Formulary Medication (Netarsudil [Rhopressa]) 1 drop EYE-BOTH BEDTIME [facility] Non-Formulary Medication (Buprenorphine [Butrans]) 1 patch TRANSDERMA Q7D [facility] Ondansetron HCl (Ondansetron Hcl 4 Mg/2 Ml Vial) 4 mg IVPUSH Q8H PRN PRN Reason: Nausea and Vomiting Last Admin: 01/12/22 01:46 Dose: 4 mg Documented By: VALENTE Oxycodone HCl (Oxycodone Hcl Immed Release 5 Mg Tablet) 5 mg PO Q6H PRN PRN Reason: Pain, Severe (Pain Scale 7-10) Pharmacy Consult (Consult Rx Perform Med Rec) 1 each MISCELLANE ONCE PRN PRN Reason: Consult order Polyethylene Glycol (Polyethylene Glycol 3350 17 Gm Powd.Pack) 17 gm PO DAILY PRN PRN Reason: Constipation Sodium Chloride (0.9 % Sodium Chloride Flush 3 Ml Syringe) 3 ml IVFLUSH QSHIFT [facility] Last Admin: 01/12/22 08:52 Dose: Not Given Documented By: AURELIANO Non-Admin Reason: IV Running Timolol Maleate (Timolol Maleate 0.5 % Oph Lori 5 Ml Drbtl) 1 drop EYE-BOTH BID [facility] Last Admin: 01/12/22 08:51 Dose: 1 drop Documented By: AURELINAO Valacyclovir HCl (Valacyclovir Hcl 500 Mg Tablet) 500 mg PO BIDAC [facility] Last Admin: 01/12/22 10:34 Dose: Not Given Documented By: MELBA Non-Admin Reason: Patient Refused Vitamin D (Cholecalciferol (Vitamin D3) 25 Mcg Tablet) 25 mcg PO DAILY [facility] Last Admin: 01/12/22 08:44 Dose: 25 mcg Documented By: AURELIANO Labs CBC & Chem 7: 01/12/22 06:45 01/12/22 06:20 Labs: Laboratory Results - last 24 hr 01/11/22 01/11/22 01/12/22 18:12 21:33 06:20 MCV MCH MCHC RDW Plt Count MPV Immature Gran % (Auto) Neut % (Auto) Lymph % (Auto) Wilkin % (Auto) Eos % (Auto) Baso % (Auto) Lymph # (Auto) Wilkin # (Auto) Eos # (Auto) Baso # (Auto) Abs Immat Gran (auto) Absolute Neuts (auto) Absolute Nucleated RBC Nucleated RBC % (auto) Smear Tech's Comments Anion Gap 11 L Estim Creat Clear Calc 76.6 Estimated GFR 55 POC Glucose 104 85 Random Glucose 125 H Calcium 8.1 L 01/12/22 01/12/22 06:45 11:51 MCV 90.2 MCH 30.3 MCHC 33.6 RDW 15.0 Plt Count 27 L D MPV 11.3 Immature Gran % (Auto) 0.0 Neut % (Auto) 80.6 H Lymph % (Auto) 10.5 L Wilkin % (Auto) 8.9 Eos % (Auto) 0.0 Baso % (Auto) 0.0 Lymph # (Auto) 0.3 L Wilkin # (Auto) 0.2 Eos # (Auto) 0.0 Baso # (Auto) 0.0 Abs Immat Gran (auto) 0.00 Absolute Neuts (auto) 2.0 Absolute Nucleated RBC 0.000 Nucleated RBC % (auto) 0.0 Smear Tech's Comments VERIFIED Anion Gap Estim Creat Clear Calc Estimated GFR POC Glucose 139 H Random Glucose Calcium Microbiology Microbiology Results: Microbiology 01/11/22 02:45 Blood Culture - Preliminary Blood - Venous No growth after 24 hours. 01/11/22 02:45 Blood Culture - Preliminary Blood - Venous No growth after 24 hours. Assessment and Plan (1) SHAISTA (acute kidney injury): Status: Acute (2) Acute dehydration: Status: Acute (3) Vomiting: Status: Acute (4) Diarrhea: Status: Acute Plan 61/ma le with MM on chemo with post chemo symptoms of nasusea, vomitting and d iarrhea #Nausea and vomitting--likely related to chemo, Cdif negative resolved -stool studies -PRN imodium and IVF - advance diet #HypOkalemia--d/t GI loss -K replacement via IVF -normal mag #Metabolic acidosis--from the diarrhea and should correct with hydration--bicab 17 and should improve #SHAISTA--likely d/t pre renal and dehydration, resolved with IVF #Dehydration--IVF #HTN Bp marginal, hold BP meds #Diabetes--SII, diabetic diet..Hold Lantus #Pancytopenia (WBC 2.8, Hgb 8.6, Plat 38) #Lactic acidosis DVT--hold heparin, lovenox or ther givn low Platlets and anemia. Compression device if tolerate diet, dC Quality Stroke Does the patient have a stroke diagnosis?: No VTE Prior VTE?: No VTE Risk Level:: Medical - moderate - high VTE Device Contraindication: Treatment Not Tolerated VTE Drug Contraindication: Treatment Not Indicated
[2022-01-12 12:00] VITALS: BP 127/62; PULSE 70; RESP 20; TEMP 37; O2SAT 98
[2022-01-12 15:18] VITALS: BMI 34.9
[2022-01-12 15:29] VITALS: BP 110/56; PULSE 72; RESP 16; TEMP 36.8; O2SAT 98
--- NOTE | 2022-01-12 16:30 | MHC.CM.PN ---
Addendum entered by Ivory Martinez 01/13/22 07:47: CM MET WITH PT WHO APPEARED LETHARGIC. HE REPORTED HE WOULD NOT HAVE A RIDE HOME AND HIS SON HAD NOT COME FOR SEVERAL DAYS. CM ATTEMPTED TO CONTACT FAMILY, VM LEFT FOR THE SON WHO LIVES WITH PT, KAMILA. Original Note: CM HAS ATTEMPTED TO CONTACT PTS SON, KAMILA [phone] TWICE VIA T/C. LEFT FOR HIM REQUESTING A RETURN CALL CM ALSO ATTEMPTED TO CONTACT PTS SONKATTY [phone] HE ALSO DID NOT ANSWER.
[2022-01-12] MEDS: valACYclovir HCL 500 MG TABLET PO (17:36)
[2022-01-12 19:17] VITALS: BP 109/62; PULSE 71; RESP 16; TEMP 37.2; O2SAT 98
[2022-01-12] MEDS: Atorvastatin Calcium 80 MG TABLET PO (23:03)
[2022-01-12 23:53] VITALS: BP 119/63; PULSE 77; RESP 19; TEMP 36.7; O2SAT 98
[2022-01-13] MEDS: 0.9 % Sodium Chloride 1,000 ML 100 ML IVCONT (03:31)
[2022-01-13 04:00] VITALS: BP 135/60; PULSE 69; RESP 18; TEMP 36.8; O2SAT 98
[2022-01-13 08:00] VITALS: BP 168/75; PULSE 73; RESP 15; TEMP 36.9; O2SAT 99
[2022-01-13 08:25] LABS: Glucose, Whole Blood 121 mg/dL (60-115)
[2022-01-13] MEDS: Loratadine 10 MG TABLET PO (09:33)
[2022-01-13] MEDS: Cyanocobalamin (Vitamin B-12) 1,000 MCG TABLET 1000 MCG PO (09:33)
[2022-01-13] MEDS: Atovaquone 750 MG/5 ML ORAL.SUSP 1500 MG PO (09:33)
[2022-01-13] MEDS: valACYclovir HCL 500 MG TABLET PO (09:33)
[2022-01-13] MEDS: Calcium + Vitamin D 250 MG TABLET 500 MG PO (09:33)
[2022-01-13] MEDS: Aspirin Enteric Coated 81 MG TABLET.DR PO (09:34)
[2022-01-13] MEDS: Folic Acid 1 MG TABLET PO (09:34)
[2022-01-13] MEDS: Cholecalciferol (Vitamin D3) 25 MCG TABLET PO (09:34)
[2022-01-13 11:28] LABS: Glucose, Whole Blood 140 mg/dL (60-115)
[2022-01-13 11:53] VITALS: BP 171/79; PULSE 75; RESP 18; TEMP 36.9; O2SAT 98
--- NOTE | 2022-01-13 12:58 | P.DS_ITS ---
DS: Providers Provider Date of Service: 01/13/22 Date of admission: 01/11/22 12:15 Primary care physician: Unknown Physician DS: Diagnosis Discharge Diagnosis (1) SHAISTA (acute kidney injury): Status: Acute (2) Acute dehydration: Status: Acute (3) Vomiting: Status: Acute (4) Diarrhea: Status: Acute DS: Summary Hospital Course Hospital Course: Chief Complaint: Nausea, vomitting and diarrhea 61 yo male from [facility], mostly hebrew speaking? with history DM, HTN, HLD? of multiple myeloma for which he's on Chemo at [facility]. His last chemo was 2 days ago on 01/09 via? a right? chest wall port.? He usually experiences nausea and vomitting post chemo that might last up to 2 days but this time he has had profuse diarrhea, nausea and vomitting and not able to keep oral intake. His found to have SHAISTA, hypokalemia, acidodis? and stomach has been gurgling. He has no fever, no sob, Hospital course: He presented with nausea and vomitting following chemo, he typically get these symptoms after chemo but last a day or 2 but this time persisted and therefore came in to be evaluated and was found to have SHAISTA. His management consisted of IVF hydration with good effect. His diet has been advanced and tolerating well. He asks to be discharge home as he is back to his baseline. He is to follow up with his PCP and oncologist. Time Spent with Patient Time attestation: Total time spent providing and/or coordinating discharge services: Discharge coordination time: Greater than 30 minutes Quality: Safe Use of Opioids Does Pt have an Active Cancer Diagnosis on the Problem List?: No Quality: Stroke Does the patient have a stroke diagnosis?: No Physical Exam Vital Signs: Vital Signs: Last Vital Signs Temp 98.4 F 01/13/22 11:53 Pulse 75 01/13/22 11:53 Resp 18 01/13/22 11:53 BP 171/79 H 01/13/22 11:53 Pulse Ox 98 01/13/22 11:53 O2 Del Method 01/13/22 11:53 BMI result Body Mass Index 34.9 Const: Other: General: AO X 3, no acute distress Resp: CTA bilateral CVS: S1,S2,RRR GI: +BS, NT, no distention Skin: No rash Neuro: motor grossly intact Psych: appropriate affect DS: Data Data Completed and Pending Labs on day of discharge: Laboratory Results - last 24 hr 01/13/22 01/13/22 08:20 11:22 POC Glucose 121 H 140 H Preliminary micro results at discharge 01/11/22 02:45 Blood Culture - Preliminary Blood - Venous No growth after 48 hours. 01/11/22 02:45 Blood Culture - Preliminary Blood - Venous No growth after 48 hours. Discharge Plan Discharge Anticipated Discharge Date/Time: 01/13/22 12:37 Patient Disposition: Home, Self-Care Discharge Diagnosis: Nausea and vomitting due to chemo Referrals: Physician,Unknown J [Primary Care Provider] - 1 Week Discharge Medications: Continued latanoprost 0.005 % Drops 1 drp OPHTHALMIC (EYE) BEDTIME atorvastatin 80 mg Tablet 80 mg PO DAILY polyethylene glycol 3350 [Miralax] 17 gram Powder In Packet 17 g PO DAILY PRN (Reason: Constipation) cyanocobalamin (vitamin B-12) 1,000 mcg Tablet 1,000 mcg PO DAILY valacyclovir 500 mg Tablet 500 mg PO BIDAC aspirin 81 mg Tablet,Delayed Release (Dr/Ec) 81 mg PO DAILY ondansetron 8 mg Tablet,Disintegrating 8 mg PO Q8H PRN (Reason: Nausea) insulin aspart U-100 [Novolog U-100 Insulin aspart] 100 unit/mL Solution See Protocol SUBCUT TID Protocol: Insulin Correction Scale Less than or equal to 110 ---- Give (units): 0 111 to 150 Give (units): 0 151 to 200 Give (units): 2 201 to 250 Give (units): 4 251 to 300 Give (units): 6 301 to 350 Give (units): 8 Greater than 350 Give (units): 10 Call MD if Blood Glucose > : 350 loratadine 10 mg Tablet 10 mg PO DAILY atovaquone 750 mg/5 mL Suspension 1,500 mg PO DAILY Rx Instructions: must administer with food, preferably a high-fat meal cholecalciferol (vitamin D3) 25 mcg (1,000 unit) Tablet 25 mcg PO DAILY brimonidine-timolol [Combigan] 0.2-0.5 % Drops 1 drp OPHTHALMIC (EYE) BID buprenorphine [Butrans] 20 mcg/hour Patch Weekly 1 patch TRANSDERMAL QWEEK Rhopressa 0.02 % Drops 1 drp OPHTHALMIC (EYE) BEDTIME baclofen 5 mg Tablet 10 mg PO TID PRN (Reason: Muscle Spasm) hydroxyzine HCl 25 mg Tablet 25 mg PO TID PRN (Reason: Itching) hydromorphone 8 mg tablet 1 - 2 tab PO Q6H PRN (Reason: moderate pain) calcium carbonate-vitamin D3 600 mg-5 mcg (200 unit) Tablet 1 tab PO DAILY diphenhydramine HCl [Benadryl] 25 mg Capsule 25 mg PO Q4H PRN (Reason: Itching) folic acid 1 mg Tablet 1 mg PO DAILY diclofenac sodium 1 % Gel 2 g TOPICAL QID Rx Instructions: apply to single elbow, wrist or hand; for hand includes palm/fingers/back of hand insulin glargine 100 unit/mL Solution 25 unit SUBCUT BEDTIME Discharge Orders: Discharge Order (Routine); Ordered 01/13/22 Ordered By: Saurav Collins Diet: Diabetic diet Activity on Discharge: As tolerated Stand Alone Forms: Patient Portal Discharge page Care Plan Goals: Full recovery from chemo, nausea and vomitting Health Concerns: myoloma Plan of Treatment: Drink plenty of fluid, follow up with your Doctor in aweek, call for appointment Assessment: as above
--- NOTE | 2022-01-13 13:10 | MHC.CM.PN ---
PATIENT IS DC HOME TODAY - SELF CARE SON KAMILA ([phone]) AWARE OF PLAN. SON TO ARRANGE FOR FAMILY MARKETING CONTENT MANAGER AWARE OF PLAN.
== END 2022-01-13 13:27 | disposition home or self-care (01) ==
LOC: HO.ED 07:12 → HO.EDOVER 12:42 → HO.S3 01-12 07:54
PROVIDERS: Emergency Medicine; Student in an Organized Health Care Education/Training Program; Admitting Provider Internal Medicine; Emergency Provider Emergency Medicine; Visit Provider Internal Medicine
DX: E86.0 Dehydration (principal); R11.2 Nausea with vomiting, unspecified; R19.7 Diarrhea, unspecified; N17.9 Acute kidney failure, unspecified; E87.6 Hypokalemia; E87.2 Acidosis; D61.818 Other pancytopenia; R10.9 Unspecified abdominal pain; C90.00 Multiple myeloma not having achieved remission; Z92.21 Personal history of antineoplastic chemotherapy; E11.9 Type 2 diabetes mellitus without complications; I10 Essential (primary) hypertension; E78.5 Hyperlipidemia, unspecified; Z20.822 Contact with and (suspected) exposure to COVID-19; Z79.82 Long term (current) use of aspirin; Z79.02 Long term (current) use of antithrombotics/antiplatelets; Z79.899 Other long term (current) drug therapy; Z79.4 Long term (current) use of insulin
CPT/HCPCS: 0241U; 36415; 71045; 74176; 80048; 80053; 80076; 81001; 82947; 83605; 83690; 83735; 84145; 85025; 85610; 87040; 87493; 87507; 87635; 93005; 96361; 96374; 96376; 99218; 99285; J2405